=== PATIENT | male | born 2000 | race African-American/Black ===

== ENCOUNTER 2025-10-04 11:00 | Emergency (ER) | payer OTHER, SELFPAY ==
--- NOTE | 2025-10-04 11:40 | ED.SYNCOPE ---
HPI - Syncope General Chief Complaint: Syncope Stated Complaint: WEAK,COLLAPSED TO FLOOR,-LOC,-HS,NEW MED FROM [facility] Time Seen by Provider: 10/04/25 13:27 Source: patient, EMS and old records reviewed Mode of arrival: EMS Limitations: no limitations History of Present Illness ED Provider: PEGGY HPI narrative: 24-year-old male with past medical history of schizophrenia who states he has been feeling fine. He has no recent travel, infection, procedures. He states he strep and class in yawned and felt like he was going to pass out. The episode was very brief he never had a loss of consciousness and never fell to the ground. He states he feels back to baseline. He states he has had this before we tries to stand up. He has never had any symptoms with any sort of exercise or activity. He states he is otherwise doing well now. He was recently put on Lexapro but has no nausea, vomiting, diarrhea. MD complaint: felt faint Onset (ago): minute(s) (Prior to arrival) -: second(s) Prodromal symptoms: lightheaded Witnessed: Yes - by Bystander Context: standing up Injuries sustained associated with event: none Current symptoms: none Treatments prior to arrival: none Related Data Allergies Allergy/AdvReac Type Severity Reaction Status Date / Time No Known Allergies Allergy Verified 10/04/25 11:43 Review of Systems Review of Systems: Yes all other systems are reviewed and are negative [facility] Past Medical History Attestation statement: The following information was validated with the patient. Source: old records reviewed Medical History Schizophrenia Social History Social History (Updated 10/04/25 @ 13:27 by Gisselle Lyles DO) Patient Tobacco Use Status: Never used Tobacco Physical Exam Vital Signs: Vital Signs: Last Vital Signs Temp 98.4 F 10/04/25 11:42 Pulse 67 10/04/25 11:42 Resp 16 10/04/25 11:42 BP 131/65 10/04/25 11:42 Pulse Ox 97 10/04/25 11:42 O2 Del Method Room Air 10/04/25 11:42 BMI result Body Mass Index 21.9 Appearance: Alert. Oriented X3. No acute distress. Eyes: Pupils equal, round and reactive to light. ENT: Pharynx normal. Neck: Normal inspection. Neck supple. CVS: Normal heart rate and rhythm. Pulses normal. Respiratory: No respiratory distress. Breath sounds normal. Abdomen: Soft and nontender. Skin: Skin warm and dry. Normal skin color. Normal skin turgor. Extremities: No lower extremity edema. No calf ttp Neuro: Oriented X 3. No motor deficit. No sensory deficit. CN2-12 intact Course Course Course Narrative: 24 yo male with PMH of schizophrenia here with c/o near syncope no related CP/SOB. No risk factors for VTE. He has no GI bleed symptoms. He has no recent infections. He had no trauma. He has had this before with standing, yawning. He will need labs, EKG, he appears well hydrated. this is a RAPID medical screening exam the rest of the history and physical exam is to be done by the main provider. PEGGY 10/04/25 1144am Medical Decision Making Medical Decision Making [facility] Narrative: 24-year-old male with past medical history of schizophrenia who states he stood up and yawning during class he started to feel very weak but he had no chest pain or trouble breathing. He states he has been fine up until this episode in class. He did not fall or have a loss of consciousness. He states he feels fine now. He states he has had this in the past when standing. He has no exertional symptoms has never syncopized with any activity. Differential Diagnosis Differential Diagnoses: The differential diagnosis associated with the presentation includes Dehydration, anemia, vasovagal reaction Admission/Observation Consideration of admission/observation: Escalation of care including admission/observation considered His workup and vital signs are reassuring at this time I do feel he can be discharged home this was related to a yawning episode and standing he had no associated chest pain or trouble breathing to suggest ACS, dissection, PE Lab Data [facility] Lab Attestation statement: I reviewed the patient's lab results. 10/04/25 12:26 10/04/25 12:26 Labs: Lab Results 10/04/25 Range/Units 12: WBC 4.4 L (4.8-10.8) X10*3/uL RBC 4.55 L (4.60-5.80) X10*6/uL Hgb 14.1 (14.0-18.0) g/dl Hct 42.3 (42.0-52.0) % MCV 93.0 (80.0-98.0) fL MCH 31.0 (27.0-33.0) pg MCHC 33.3 (31.0-36.0) g/dl RDW 12.5 (11.0-16.0) % Plt Count 273 (160-400) X10*3/uL MPV 9.9 (9.4-12.4) fL Immature Gran % (Auto) 0.2 (0.0-0.4) % Neut % (Auto) 61.7 (45-73) % Lymph % (Auto) 29.6 (20-40) % Kaufman % (Auto) 6.2 (2-11) % Eos % (Auto) 1.8 (0-4) % Baso % (Auto) 0.5 (0-2) % Lymph # (Auto) 1.3 (1.2-4.9) X10*3/uL Kaufman # (Auto) 0.3 (0.1-1.2) X10*3/uL Eos # (Auto) 0.1 (0.0-0.4) X10*3/uL Baso # (Auto) 0.0 (0.0-0.2) X10*3/uL Abs Immat Gran (auto) 0.01 (0.00-0.03) X10*3/uL Absolute Neuts (auto) 2.7 (2.0-8.3) x10*3/uL Absolute Nucleated RBC 0.000 (0.0-0.012) X10*3/uL Nucleated RBC % (auto) 0.0 (0.0-0.2) /100WBC Sodium 143 (135-145) mmol/L Potassium 4.1 (3.3-5.1) mmol/L Chloride 108 (96-108) mmol/L Carbon Dioxide 29 (22-29) mmol/L Anion Gap 10 L (12-20) BUN 11 (9-16) mg/dL Creatinine 0.97 (0.5-1.4) mg/dL Estim Creat Clear Calc 106.3 Estimated GFR > 60 Random Glucose 95 (60-115) mg/dL Calcium 9.4 (8.4-10.2) mg/dL Independent Interpretation I performed an independent interpretation of an: EKG Interpretation: Rate: 60 Rhythm: NSR [place]: left Normal P waves. Normal ESTEFANIA. Normal QRS complex. ST T wave : No ST elevation, he has inverted T-waves in lead 3 qTC: 410 prior studies: No prior The study has been interpreted contemporaneously by me. . Independent Historian Clinical information obtained from an independent historian. History obtained from or confirmed by: EMS External Record Review External record reviewed: Outpatient record Discharge Plan Discharge Clinical Impression: Near syncope Patient Disposition: Home, Self-Care Instructions: Near Syncope (ED) Additional Instructions: Your vital signs and labs were reassuring You need to rest and stay hydrated You should be drinking approximately 60 oz of water a day but no more Please return for any worsening symptoms such as you notice chest pain, trouble breathing, swelling in the legs, blood in your bowel movements, or any other concerns Stand Alone Forms: Work/School Release
[2025-10-04 11:42] VITALS: BP 131/65; PULSE 67; RESP 16; TEMP 36.9; O2SAT 97; BMI 21.9
[2025-10-04 11:45] VITALS: BP 127/74; PULSE 76; O2SAT 100
--- NOTE | 2025-10-04 11:45 | ECG_ITS ---
Test Reason : NEAR SYNCOPE Blood Pressure : */* mmHG Vent. Rate : 57 BPM Atrial Rate : 113 BPM P-R Int : 134 ms QRS Dur : 78 ms QT Int : 420 ms P-R-T Axes : 81 -29 -5 degrees QTcB Int : 408 ms Artefact in tracing Normal sinus rhythm No previous ECGs available Repeat EKG Referred By: Gisselle Lyles Electronically Signed By: THEO ROJAS MD
[2025-10-04 12:31] LABS: MANUAL DIFF FLAG NO
--- NOTE | 2025-10-04 12:31 | ECG_ITS ---
Test Reason : NEAR SYNCOPE Blood Pressure : */* mmHG Vent. Rate : 60 BPM Atrial Rate : 60 BPM P-R Int : 134 ms QRS Dur : 82 ms QT Int : 410 ms P-R-T Axes : 59 -29 -11 degrees QTcB Int : 410 ms Normal sinus rhythm Normal ECG When compared with ECG of 04-Oct-2025 12:20, No significant changes seen Referred By: Edouard Leo Electronically Signed By: THEO ROJAS MD
[2025-10-04 12:34] LABS: Hematocrit 42.3 % (42.0-52.0); Hemoglobin 14.1 g/dl (14.0-18.0); Imm Gran Abs Auto 0.01 X10*3/uL (0.00-0.03); Imm Gran Pct Auto 0.2 % (0.0-0.4); Lymphocytes Absolute Auto 1.3 X10*3/uL (1.2-4.9); Mean Corpuscular HGB Conc 33.3 g/dl (31.0-36.0); Mean Corpuscular Hemoglobin 31.0 pg (27.0-33.0); Mean Corpuscular Volume 93.0 fL (80.0-98.0); NRBC Abs Auto 0.000 X10*3/uL (0.0-0.012); NRBC Pct Auto 0.0 /100WBC (0.0-0.2); Platelet Count 273 X10*3/uL (160-400); Red Blood Count 4.55 X10*6/uL (4.60-5.80); White Blood Count 4.4 X10*3/uL (4.8-10.8)
[2025-10-04 12:46] LABS: Anion Gap 10 (12-20); Blood Urea Nitrogen 11 mg/dL (9-16); Calcium 9.4 mg/dL (8.4-10.2); Carbon Dioxide 29 mmol/L (22-29); Chloride 108 mmol/L (96-108); Creatinine Clr Calc Pharmacy 106.3; Estimated Glomerular Filt Rate > 60; Potassium 4.1 mmol/L (3.3-5.1); Sodium 143 mmol/L (135-145)
[2025-10-04 14:00] VITALS: BP 131/65; PULSE 67; RESP 16; TEMP 36.9; O2SAT 97
--- OUTSIDE RECORDS SUMMARY | 2025-10-04 19:13 | XMS_ITS | Clinical Summary ---
Author Organization [facility] Address [address] [place] [address] Phone Care Team Providers Care Export Traffic Department Manager Name Role Phone Physician, No Pcp Primary Care Provider Unavaila ble Allergies No known active allergies Medications ofloxacin (FLOXIN) 0.3 % otic solution Administer 5 drops into the left ear 2 (two) times a day for 10 days. 5 mL 09/28/20 25 Encounters Date Type Department Care Team Description 09/18/2025 1:38 PM EST - 09/18/2025 5:41 PM EST Emergency [facility] Emergency [address] [place] [address] Impacted cerumen of left ear (Primary Dx); Acute otitis externa of left ear, unspecified type; Disorder of left middle ear Discharge Disposition: Home or Self Care from Last 3 Months Social History Tobacco Use Types Packs/Day Years Used Date Smoking Tobacco: Never Assessed Sex and Gender Information Value Date Recorded Sex Assigned at Not on file Legal Sex Male 9:21 AM EST Gender Identity Not on file Sexual Orientation Not on file Last Filed Vital Signs Vital Sign Reading Time Taken Comments Blood Pressure 119/64 09/18/2025 12:56 PM EST Pulse 68 09/18/2025 12:56 PM EST Temperature 36.8 C (98.2 F) 09/18/2025 12:56 PM EST Respiratory Rate 16 09/18/2025 12:56 PM EST Oxygen Saturation 100% 09/18/2025 12:56 PM EST Inhaled Oxygen Concentration - - Weight 63.5 kg (140 lb) 01/18/2025 1:51 PM EDT Height 170.2 cm (5' 7 ) 01/18/2025 1:51 PM EDT Body Mass Index 21.93 01/18/2025 1:51 PM EDT Plan of Treatment Health Maintenance Due Date Last Done Comments HPV Vaccines (1 - Male 3-dose series) 2016 Meningococcal B Vaccine (1 of 2 - Standard) 2017 DTaP,Tdap,and Td Vaccines (1 - Tdap) 2020 Hepatitis B Vaccines (1 of 3 - 19+ 3-dose series) 2020 HIV Screening 08/05/2024 Hepatitis C Screening 08/05/2024 Social Influencers of Health Screening 08/05/2024 Depression Screening 10/27/2024 COVID-19 Vaccine ( - season) 2025 09/18/2024, 06/24/2022, 09/18/2021, Additional history exists Influenza Vaccine (#1) 2025 09/26/2021 RSV Immunization Adult Patients (1 - 1-dose 75+ series) 2076 HIB Vaccines Aged Out No longer eligi ble based on patient's age to complete this topic Hepatitis A Vaccines Aged Out No long er eligible based on patient's age to complete this topic IPV Vaccines Aged Out No longer eligi ble based on patient's age to complete this topic MMR Vaccines Aged Out No longer eligi ble based on patient's age to complete this topic Meningococcal ACWY Vaccine Aged Out N o longer eligible based on patient's age to complete this topic Pneumococcal Vaccine: Pediatrics (0 to 5 Years) and At-Risk Patients (6 to 49 Years) Aged Out No longer eligible based on patient's age to complete this topic RSV Immunization Patients Under 20 months Aged Out No longer eligible based on patient's age to complete this topic Varicella Vaccines Aged Out No longer eligible based on patient's age to complete this topic Procedures Procedure Name Priority Date/Time Associated Diagnosis Comments HC TREATMENT/PROCEDURE ENT Routine 09/18/2025 5:19 PM EST NH REMOVAL CERUMEN IMPACTED IRRIGATION/LAVAGE UNILATERAL Routine 09/18/2025 5:[address] ANGIO HEAD/NECK WO AND/OR W CONTRAST STAT 09/18/2025 4:07 PM EST CBC WITH AUTO DIFFERENTIAL STAT 09/18/2025 2:39 PM EST CBC AND DIFFERENTIAL STAT 09/18/2025 2:39 PM EST COMPREHENSIVE METABOLIC PANEL STAT 09/18/2025 2:39 PM EST from Last 3 Months Results * NH REMOVAL CERUMEN IMPACTED IRRIGATION/LAVAGE UNILATERAL, HC TREATMENT/PROCEDURE ENT (09/18/2025 5:19 PM EST) Marko Hdz MD - 09/18/2025 5:19 PM EST Marko Hicks MD 09/18/2025 6:23 PM Ear Cerumen Removal Date/Time: 09/18/2025 5:19 PM Performed by: NORMAN Martinez Authorized by: Marko Hicks MD Consent: Consent obtained: Verbal Consent given by: Patient Risks, benefits, and alternatives were discussed: yes Risks discussed: Pain, incomplete removal and bleeding Alternatives discussed: Referral and alternative treatment [place] protocol: Procedure explained and questions answered to patient or proxy's satisfaction: yes Relevant documents present and verified: yes Patient identity confirmed: Verbally with patient and arm band Procedure details: Location: L ear Procedure type: irrigation Procedure outcomes: cerumen removed Post-procedure details: Inspection: Macerated skin and TM intact Hearing quality: Improved Procedure completion: Tolerated well, no immediate complications Comments: Ear canal macerated, erythematous, tender and mild swelling. us Marko Hicks MD IN CLINIC/BEDSIDE ORDERABLE S Final Result * CT Angio Head/Neck wo and/or w Contrast (09/18/2025 4:07 PM EST) Anatomical Region Laterality Modality Head and Neck Computed Tomogra phy 09/18/2025 5:12 PM EST Impressions 09/18/2025 5:12 PM EST 1. No acute findings on noncontrast CT head. 2. Unremarkable CT angiography of the neck. 3. Unremarkable CT angiography of the brain. 4. Left mastoid air cells are not pneumatized. Left middle ear partially opacified. ENT consultation is recommended. This document has been electronically signed by: Joan Patel MD on 09/18/2025 17:12:14 Narrative 09/18/2025 5:12 PM EST INDICATION: Unilateral pulsatile tinnitus with associated change in vision CT Head without contrast. CT angiography head and neck with contrast. 3D Postprocessing. Comparison: None provided Findings: HEAD CT: No intra-axial mass, midline shift, hydrocephalus, or acute hemorrhage. The ventricles and subarachnoid spaces are normal in size and the ventricles are normal in position with no midline shift or herniation. No territorial infarct. Left mastoid air cells not pneumatized. Left middle ear cavity partially opacified. Mucous retention cyst/polyp in left maxillary sinus. The orbits are within normal limits. No acute skull fracture. HEAD AND NECK CTA: Aortic arch and cervical great vessels are patent. Intracranial arteries are patent. No aneurysm, dissection, or occlusion. 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 origin of posterior cerebral arteries bilaterally. No abnormal intracranial enhancement. The visualized thyroid gland is unremarkable. No cervical mass or fluid collection. Lung apices clear. No acute fracture. Procedure Note Joan Patel MD - 09/18/2025 INDICATION: Unilateral pulsatile tinnitus with associated change invision CT Head without contrast. CT angiography head and neck with contrast. 3D Postprocessing. Comparison: None provided Findings: HEAD CT: No intra-axial mass, midline shift, hydrocephalus, or acute hemorrhage. The ventricles and subarachnoid spaces are normal in size and the ventricles are normal in position with no midline shift or herniation. No territorial infarct. Left mastoid air cells not pneumatized. Left middle ear cavity partially opacified. Mucous retention cyst/polyp in left maxillary sinus. The orbits are within normal limits. No acute skull fracture. HEAD AND NECK CTA: Aortic arch and cervical great vessels are patent. Intracranial arteries are patent. No aneurysm, dissection, or occlusion. 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 origin of posterior cerebral arteries bilaterally. No abnormal intracranial enhancement. The visualized thyroid gland is unremarkable. No cervical mass or fluid collection. Lung apices clear. No acute fracture. IMPRESSION: 1. No acute findings on noncontrast CT head. 2. Unremarkable CT angiography of the neck. 3. Unremarkable CT angiography of the brain. 4. Left mastoid air cells are not pneumatized. Left middle ear partially opacified. ENT consultation is recommended. This document has been electronically signed by: Joan Patel MD on 09/18/2025 17:12:[address] [place] PROCEDURES Final Res ult * (ABNORMAL) CBC auto differential (09/18/2025 2:39 PM EST) WBC 4.2(L) 4.8 - 10.8 K/mcL LAB HEMETOLOGY METHOD 09/18/2025 2:55 PM EST [facility] RBC 4.60 4.50 - 5.50 M/mcL LAB HEMETOLOGY METHOD 09/18/2025 2:55 PM [facility] Hemoglobin 14.0 13.5 - 17.5 g/dL LAB HEMETOLOGY METHOD 09/18/2025 2:55 PM [facility] Hematocrit 43.3 42.0 - 54.0 % LAB HEMETOLOGY METHOD 09/18/2025 2:55 PM [facility] MCV 95.0 79.0 - 98.0 FL LAB HEMETOLOGY METHOD 09/18/2025 2:55 PM [facility] MCH 30.7 27.0 - 32.0 pcg LAB HEMETOLOGY METHOD 09/18/2025 2:55 PM [facility] MCHC 32.3 32.0 - 37.0 g/dL LAB HEMETOLOGY METHOD 09/18/2025 2:55 PM [facility] RDW 13.0 11.0 - 15.0 % LAB HEMETOLOGY METHOD 09/18/2025 2:55 PM [facility] Platelets 232 130 - 400 K/mcL LAB HEMETOLOGY METHOD 09/18/2025 2:55 PM [facility] MPV 10.8 7.0 - 11.0 FL LAB HEMETOLOGY METHOD 09/18/2025 2:55 PM [facility] NRBC 0.0 <1.0 % LAB HEMETOLOGY METHOD 09/18/2025 2:55 PM [facility] NRBC Absolute 0.00 <0.10 K/mcL LAB HEMETOLOGY METHOD 09/18/2025 2:55 PM [facility] Neutrophils Relative 32.9 % LAB HEMETOLOGY METHOD 09/18/2025 2:55 PM [facility] Lymphocytes Relative 52.5 % LAB HEMETOLOGY METHOD 09/18/2025 2:55 PM [facility] Monocytes Relative 7.9 % LAB HEMETOLOGY METHOD 09/18/2025 2:55 PM [facility] Eosinophils Relative 6.2 % LAB HEMETOLOGY METHOD 09/18/2025 2:55 PM [facility] Basophils Relative 0.5 % LAB HEMETOLOGY METHOD 09/18/2025 2:55 PM [facility] Immature Granulocytes Relative 0.0 % LAB HEMETOLOGY METHOD 09/18/2025 2:55 PM [facility] Neutrophils Absolute 1.37(L) 1.50 - 7.00 K/mcL LAB HEMETOLOGY METHOD 09/18/2025 2:55 PM [facility] Lymphocytes Absolute 2.19 1.00 - 5.00 K/mcL LAB HEMETOLOGY METHOD 09/18/2025 2:55 PM [facility] Monocytes Absolute 0.33 0.20 - 1.00 K/mcL LAB HEMETOLOGY METHOD 09/18/2025 2:55 PM [facility] Eosinophils Absolute 0.26 0.00 - 0.50 K/mcL LAB HEMETOLOGY METHOD 09/18/2025 2:55 PM [facility] Basophils Absolute 0.02 0.00 - 0.20 K/mcL LAB HEMETOLOGY METHOD 09/18/2025 2:55 PM [facility] Immature Granulocytes Absolute 0.00 0.00 - 0.03 K/mcL LAB HEMETOLOGY METHOD 09/18/2025 2:55 PM EST [facility] Blood Venous blood specimen / Unknown Venipuncture / Unknown 09/18/2025 2:39 PM EST 09/18/2025 2:48 PM EST us [facility] [place] [facility] BLOOD ORDERABLES Final Result [facility] [address] [place] [address], [place] [phone] * Comprehensive Metabolic Panel (CMP) (09/18/2025 2:39 PM EST) Sodium 142 133 - 145 mmol/L 09/18/2025 3:12 PM [facility] Potassium 4.3 3.5 - 5.5 mmol/L 09/18/2025 3:12 PM [facility] Chloride 102 96 - 110 mmol/L 09/18/2025 3:12 PM [facility] CO2 30 21 - 32 mmol/L 09/18/2025 3:12 PM [facility] Anion Gap 10 3 - 11 09/18/2025 3:12 PM [facility] Glucose 82 70 - 100 mg/dL 09/18/2025 3:12 PM [facility] BUN 19 5 - 25 mg/dL 09/18/2025 3:12 PM [facility] Creatinine 1.09 0.70 - 1.30 mg/dL 09/18/2025 3:12 PM [facility] eGFR 98 >=60 mL/min/1. 73m2 09/18/2025 3:12 PM [facility] Comment:Calculation based on the Chronic Kidney Disease Epidemiology Collaboration (CKD-EPI) equation refit without adjustment for race. BUN/Creatinine Ratio 17.4 09/18/2025 3:12 PM [facility] Calcium 9.3 8.5 - 10.5 mg/dL 09/18/2025 3:12 PM [facility] AST (SGOT) 32 10 - 42 unit/L 09/18/2025 3:12 PM [facility] ALT (SGPT) 22 10 - 60 unit/L 09/18/2025 3:12 PM [facility] Alkaline Phosphatase 111 42 - 121 unit/L 09/18/2025 3:12 PM [facility] Total Protein 7.1 6.0 - 8.0 g/dL 09/18/2025 3:12 PM [facility] Albumin 4.4 3.2 - 5.0 g/dL 09/18/2025 3:12 PM [facility] Total Bilirubin 0.7 0.0 - 1.4 mg/dL 09/18/2025 3:12 PM [facility] Blood Venous blood specimen / Unknown Venipuncture / Unknown 09/18/2025 2:39 PM EST 09/18/2025 2:48 PM EST [facility] [place] [facility] BLOOD ORDERABLES Final Result [facility] [address] [place] [address], from Last 3 Months Insurance [facility] MEDICAID ADVANTAGE Care Teams Export Traffic Department Manager Relationship Specialty Start Date End Date Physician, No Pcp PCP - General 01/18/25
== END 2025-10-04 14:00 | disposition home or self-care (01) ==
LOC: HO.ED 13:38
PROVIDERS: Emergency Provider Emergency Medicine
DX: R55 Syncope and collapse (principal); F20.9 Schizophrenia, unspecified
CPT/HCPCS: 36415; 80048; 85025; 93005; 99283

== ENCOUNTER → 2025-10-04 11:45 | Outpatient (BNV) | payer OTHER, SELFPAY | PROVIDERS: Emergency Provider Emergency Medicine; Visit Provider Internal Medicine Cardiovascular Disease | DX: R55 Syncope and collapse (principal) | CPT/HCPCS: 93010 ==